=== PATIENT | female | born 1990 | race Caucasian/White ===

== ENCOUNTER 2019-02-26 18:50 | Inpatient (IN) | payer OTHER, SELFPAY ==
[2019-02-26 20:13] VITALS: BMI 27.5
[2019-02-26 20:25] LABS: Absolute Lymphocyte Count 1.81 X10^3/uL (0.83-4.51); Absolute Neutrophil Count 7.2 X10^3/uL (2.0-7.7); Basophil# 0.04 X10^3/uL; Basophil% 0.4 % (0-1); Eosinophil# 0.04 X10^3/uL; Eosinophils% 0.4 % (0-5); Hematocrit 37.1 % (37-47); Hemoglobin 13.1 g/dL (12.0-15.0); Lymphocyte # 1.81 X10^3/ul (4.0); Lymphocyte % 18.8 % (19-41); Mean Corp Hgb Conc 35.3 g/dL (32-36); Mean Corpuscular Hgb 30.2 pg (27.0-32.0); Mean Corpuscular Volume 85.5 fL (81-99); Mean Platelet Vol. 9.9 fl (6.2-12.0); Monocyte# 0.56 X10^3/uL; Monocyte% 5.8 % (0-10); NRBC Flagged by Analyzer 0 % (0-5); Neutrophil # 7.16 X10^3/uL (2.7-7.7); Neutrophil % 74.2 % (47-70); Platelet Count 236 K/mm3 (150-450); RBC Distribution Width SD 39.7 fl (35.1-43.9); Red Blood Count 4.34 M/mm3 (4.2-5.4); White Blood Count 9.7 K/mm3 (4.4-11.0)
[2019-02-26] MEDS: CLARIFY ORDER NOTE (23:20)
[2019-02-27] VITALS (19 sets, daily range): BP systolic 110–164; BP diastolic 56–77; PULSE 68–92; RESP 14–18; TEMP 36.4–38.4; O2SAT 94–100
--- NOTE | 2019-02-27 00:20 | PCM.HP.OB ---
History Date of Admission: 02/26/19 Final DEBBIE: 02/19/19 Gestational age: 41 Weeks and 1 Days History of this : This is a 29 year-old, G [], P [], at 41 weeks gestational age. Medical History: Medical History (Last Updated 02/27/19 @ 00:22 by Syed Sheikh) [place] teeth removed K08.409 Allergies No Known Allergies Allergy (Verified 02/26/19 20:12) Home Medications: Home Medications Vits [Prenatabs FA] 1 tab PO DAILY 02/26/19 Smoking Status: Never smoker Heart Tracin with mod variability, accels TOCO Analysis: Q2 minutes History Past Pregnancies: Past Pregnancies Delivery Date Name GA/Weeks Outcome Route Weight Infant Gender Labor Length Anesthesia Delivery Location Provider FOB Labs: See [facility] prenatals Physical Exam General: Alert, Oriented x3 Abdomen: Soft, Non Tender, Non-Distended, Gravid Neurological: Cranial nerves II-XII grossly intact [employer]ATE ACCOUNTANT: Normal external genitalia Estimated gestational size: Appropriate for gestational size Presentation: Cephalic Cervix Dilation (cm): 1.5 Station: -2 Effacement (%): 70 Assessment/Plan This is a 29 year-old female at 41 weeks gestational age for induction. Admit to L&D. Induction - placed 2nd dose of cytotec. Unable to place intracervical troncoso. GBS positive - start penicillin when in active labor or by 5am. Pain - epidural when desired. EFW less than 4500g, patient with adequate pelvis.
[2019-02-27] MEDS: Lactated Ringers 1,000 ML 50 ML IV ×3 (03:09→10:05)
[2019-02-27] MEDS: Oxytocin 30 units/NS 500 ml 30 UNITS/500 ML IV.SOLN IV (04:20)
[2019-02-27] MEDS: fentaNYL-bupivacaine (epidural) 100 ML BAG EPIDURAL ×2 (05:31→10:08)
--- NOTE | 2019-02-27 07:20 | PN_ITS ---
Progress Note S: Patient comfortable with epidural O: cvx - 8/c/0 IUPC & FSE placed fhts 145 with moderate variability, some variables (mostly mild but some mo derate to deep) and accels tocos - Q 2-4 min A&P: continue expectant management monitoring remains overall reassuring Andria Hairston updated on patient's status as taking over care
[2019-02-27] MEDS: Amnioinfusion- 0.9% NS 1,000 ML IV.SOLN. 1000 ML INTRA-UTER (07:33)
--- NOTE | 2019-02-27 07:48 | PCM.PN.BLA ---
Progress Note Patient now s/p deep variables and prolonged variable of 2-3 minutes that nadired in 60's. Patient in hands & kness, oxygen on and amnioinfusion started. Fht's now 135 with mod variability and accel. monitoring is overall reassuring. Cvx is 9/c/0 Andria Hairston & updated.
--- NOTE | 2019-02-27 09:05 | PCM.PN.OB ---
Subjective: Comfortable with epidural. Feeling pressure. at bedside. Objective: FHT: 140, moderate variability, accels, variable and late decelerations with pushing efforts. TOCO: Every 2-2.5 minutes strong Amnioinfusion Cervix: Complete/+1 station. - Physical Exam Weight: 155 lb 3.2 oz Body Mass Index (BMI) 27.5 Intake and Output for Last 24 Hours 02/25/19 02/26/19 02/27/19 23:59 23:59 23:59 Intake Total 2443 / 2443 Output Total 1200 / 1200 Balance 1243 / 1243 Laboratory Tests Past 24 Hrs 02/26/19 02/26/19 20:00 20:00 WBC 9.7 RBC 4.34 Hgb 13.1 Hct 37.1 MCV 85.5 MCH 30.2 MCHC 35.3 RDW Std Deviation 39.7 RDW Coeff of Joe 13.0 Plt Count 236 MPV 9.9 Immature Gran % (Auto) 0.400 Neut % (Auto) 74.2 H Lymph % (Auto) 18.8 L [place] % (Auto) 5.8 Eos % (Auto) 0.4 Baso % (Auto) 0.4 Absolute Neuts (auto) 7.2 Absolute Lymphs (auto) 1.81 Absolute Nucleated RBC 0.00 Nucleated RBC % 0 Blood Type O POSITIVE Antibody Screen NEGATIVE Medical Necessity - Tobacco Use Smoking Status: Never smoker Assessment/Plan A:Active labor second stage Category 2 FHT P: 1) Continue pushing efforts at this time. Positional changes, IV fluid bolus, O2 via face mask 2) notified of patient status and FHR decelerations.
--- NOTE | 2019-02-27 10:10 | PN_ITS ---
Subjective: Pushing on left side, baby not tolerating other positions. Epidural effective. Objective: FHT 145, moderate variability, accels. variable and late decelerations. TOCO: every 2 minutes, strong +2 station, movement with pushing efforts. - Physical Exam Weight: 155 lb 3.2 oz Body Mass Index (BMI) 27.5 Intake and Output for Last 24 Hours 02/25/19 02/26/19 02/27/19 23:59 23:59 23:59 Intake Total 2443 / 2443 Output Total 1200 / 1200 Balance 1243 / 1243 Laboratory Tests Past 24 Hrs 02/26/19 02/26/19 20:00 20:00 WBC 9.7 RBC 4.34 Hgb 13.1 Hct 37.1 MCV 85.5 MCH 30.2 MCHC 35.3 RDW Std Deviation 39.7 RDW Coeff of Joe 13.0 Plt Count 236 MPV 9.9 Immature Gran % (Auto) 0.400 Neut % (Auto) 74.2 H Lymph % (Auto) 18.8 L [place] % (Auto) 5.8 Eos % (Auto) 0.4 Baso % (Auto) 0.4 Absolute Neuts (auto) 7.2 Absolute Lymphs (auto) 1.81 Absolute Nucleated RBC 0.00 Nucleated RBC % 0 Blood Type O POSITIVE Antibody Screen NEGATIVE Medical Necessity - Tobacco Use Smoking Status: Never smoker Assessment/Plan A:Active Labor, second stage Category 2 FHT P: 1) notified of deep variables and elevated temperature 101.3. Good variability and FHR accelerations. One isolated temperature. Will recheck temp in 30 minutes. 2) Continue with pushing efforts at this time.
[2019-02-27] MEDS: Acetaminophen 325 MG Tablet PO (10:34)
--- NOTE | 2019-02-27 10:54 | PN_ITS ---
Subjective: Laying on right side. Pushing effort continue. Epidural effective. Objective: FHT 150,moderate variability, no accels. Prolonged deceleration with pushing efforts TOCO: strong, every 2 to 2.5minutes +2 station, minimal decent with pushing efforts, caput - Physical Exam Weight: 155 lb 3.2 oz Body Mass Index (BMI) 27.5 Intake and Output for Last 24 Hours 02/25/19 02/26/19 02/27/19 23:59 23:59 23:59 Intake Total 3674 / 3674 Output Total 1350 / 1350 Balance 2324 / 2324 Laboratory Tests Past 24 Hrs 02/26/19 02/26/19 20:00 20:00 WBC 9.7 RBC 4.34 Hgb 13.1 Hct 37.1 MCV 85.5 MCH 30.2 MCHC 35.3 RDW Std Deviation 39.7 RDW Coeff of Joe 13.0 Plt Count 236 MPV 9.9 Immature Gran % (Auto) 0.400 Neut % (Auto) 74.2 H Lymph % (Auto) 18.8 L [place] % (Auto) 5.8 Eos % (Auto) 0.4 Baso % (Auto) 0.4 Absolute Neuts (auto) 7.2 Absolute Lymphs (auto) 1.81 Absolute Nucleated RBC 0.00 Nucleated RBC % 0 Blood Type O POSITIVE Antibody Screen NEGATIVE Medical Necessity - Tobacco Use Smoking Status: Never smoker Assessment/Plan A:Active labor, second stage Category 2 FHT P: 1) notified of prolonged decelerations. Baby not tolerating pushing efforts and positional changes. Stable at this time. Maternal fever present, Tylenol given. Limited decent with 2 hrs of pushing and intolerance. Decision for section. OR team notified, 2 grams Ancef and 500mg Azithromycin ordered. Referral of care to .
[2019-02-27] MEDS: CHLORHEXIDINE GLUC 2% CLOTH 1 EACH TOWELETTE TOPICAL (11:00)
[2019-02-27] MEDS: Sodium Citrate/Citric Acid 30 ML UDC PO (11:05)
--- NOTE | 2019-02-27 11:11 | PCM.PN.BLA ---
Progress Note She was seen at bedside vaginal exam was performed. Noted, OP position, +2 station. Prolonged deceleration while I was in the room down to 70 bpm good return to baseline. I counseled the patient that at this time she still has significant amount of pushing to do fetus is not tolerating pushing efforts and there is minimal descent of the head. Patient also has maternal temperature 101.3 no meconium noted. We reviewed primary fully dilated with deep arrest section risks and benefits including but not limited to bleeding, infection, injury to pelvic structures. Patient and verbalized understanding and wished to proceed with a primary section at this time.
[2019-02-27] MEDS: Cefazolin 2 GM in 0.9% Normal Saline 100 ML IV (11:17)
[2019-02-27] MEDS: Oxytocin 30 units/NS 500 ml 30 UNITS/500 ML IV.SOLN 167 UNITS IV (11:35)
[2019-02-27] MEDS: Methylergonovine 0.2 MG/ML Ampul IM (11:40)
[2019-02-27] MEDS: Lactated Ringers 1,000 ML 100 ML IV ×2 (12:00→21:44)
[2019-02-27] MEDS: Ondansetron 4 MG/2 ML Vial IV (12:00)
--- NOTE | 2019-02-27 12:07 | PLAC_PTH ---
PATIENT: IRA DE LA ROSA LOC: WP U#:[id number] AGE/SX: 29/F ROOM: WP021 RE02/26/[address]: Dr. Laura Valentine, MDDOB: 1990 BED: 1 DIS: 03/01/2019 SPEC #: [id number] RECD: 02/27/19 15:36 STATUS: MATTHEW BENNIE #: [id number] AMADO: 02/27/19 12:[address]: Laura Valentine DEPT: SURGICAL PATHOLOGY RECD BY: Franco Bueno ENTERED: 03/02/19 08:08 SP TYPE: PLACENTA OTHR DR: No Primary Care Phys Tissues: Placenta, NOS Procedures: Surgery Specimen Level V HEADER OPERATION: Primary section PRE-OP DIAGNOSIS: Suspected triple I TISSUE SUBMITTED: Placenta MICROSCOPIC DIAGNOSIS [place] placenta (435 gm): Umbilical cord - trivascular with no inflammation Placental membranes - no pathologic change. Placental disc - Alana-Eric change and mildly increased intraparenchymal fibrin plaques. AM:juan francisco 03/03/19 MICROSCOPIC DESCRIPTION Slides are reviewed. GROSS DESCRIPTION SPECIMEN: PLACENTA / CLINICAL INFORMATION: A. Weight: 3.237 kg B. Gestational Age: 41 weeks C. Sex: Male PLACENTAL WEIGHT (POST FIXATION): 435 gm PLACENTAL DIMENSIONS: 19 x 19 x 3 cm PLACENTAL SHAPE: Usual ovoid PLACENTAL WEIGHT FOR GESTATIONAL AGE: Within 10-99th percentile MEMBRANES - Present A. Insertion: Marginal B. Site of rupture from edge: At edge of placental disc C. Color of membrane: [place]-cameron D. Abnormalities: None UMBILICAL CORD - Present A. Color: [place]-cameron B. Insertion: Central C. Length: 17 cm D. Diameter: Up to 1 cm E. Number of vessels: Three F. Abnormalities: None PLACENTAL DISC - Present A. Color of surface: [place]-cameron B. surface abnormalities: None C. Maternal cotyledons: Intact with minimal tears D. Attached retro placental clot: No clot E. Cut surface: Dark red and spongy F. Lesions: None G. Separate clot: Absent SECTIONS SUBMITTED: 1. Membrane roll 2. Cord, maternal end 3. Cord, end 4. Placental disc, and maternal surfaces 5. Placental disc, and maternal surfaces 6. Placental disc, and maternal surfaces SJ:juan francisco 03/02/19 TC:5 CPT: 30582
--- NOTE | 2019-02-27 12:10 | OP.PCM_ITS ---
Delivery Classification: ARLEY Final DEBBIE Source: LMP Gestational age: 41.1 Indications: Nonreassuring heart status-tolerance to pushing. Arrest of descent. Suspected AAA. Description of Procedure: Operative note: After informed consent was obtained the patient was taken the operating room. She was then placed in the supine position. She was prepped and draped in the normal sterile fashion. Epidural anesthesia was found to be adequate. At this time a Pfannenstiel skin incision was made with a knife was carried down to the underlying layer of the fascia. The fascial incision was then extended laterally using curved Perez scissor. Tensions was then turned to the superior aspect of the fascial edge was grasped with 2 straight Tohatchi clamps tented up and the rectus muscle dissected off sharply using curved Perez scissor. Attention was then turned to the inferior aspect where again Harriet clamps were placed in the rectus muscles were tented up and the fascia was dissected off sharply using the curved Perez scissor. Rectus muscles were then in the midline bluntly and peritoneum was entered bluntly. Gentle opposing traction was placed. At this time the vesicouterine peritoneum was identified. Metzenbaum scissors were used to create a bladder flap and that was taken down digitally. Scalpel was used to make a uterine incision in a low transverse fashion. The uterus was then entered bluntly gentle opposing traction was placed to extend this incision. With the assistance from a push-up from below 's head was brought to the uterine incision was delivered atraumatically. Fetus was in the OP position. Sent was vigorous. Delayed cord clamping was performed. Cord was clamped and cut was handed to the waiting nursery team. The Placenta was removed from the uterus. The uterus was then removed from the abdominal cavity. The uterus was cleared of all clots and debris using a lap. At this time the uterine incision was reapproximated using #1 Vicryl in a running locked fashion. Second imbricating layer was placed using #1 Vicryl in a [id number] fashion. Hemostasis was appreciated. Posterior cul-de-sac was then cleared of all clots and debris. Uterus was placed back in the abdominal cavity. Gutters were cleared of all clots and debris. Uterine incision was reevaluated and noted to be of excellent hemostasis. Efrain placed. At this time the peritoneum was grasped with Kellys reapproximated using #2 Vicryl suture in a running fashion-imbricating the muscle. Fascia was then reapproximated using #1 Vicryl in a running fashion. Subcu layer was reapproximated with #2 0 plain gut suture in an interrupted fashion. Subcu layer was closed using 4-0 Vicryl on a Jason needle in a subcu fashion. Dry sterile dressing was applied. Instrument lap needle count correct ?2. Anticipated normal postoperative course. Amniotic Membrane Rupture Type: Spontaneous Amniotic Fluid Description: Clear Placenta Disposition: Routine to Lab Specimen(s) sent to pathology: placenta Drain: Camacho to straight drain Cord Entanglement: None Cord Vessel Description: 3 Vessels Esitmated Blood Loss (ml): 800 Infant Gender: Male (1 minute): 8 (5 minute): 9 Delayed cord clamping: Yes Pre-op Antibiotic Given: - - azithromycin 500mg Pt instructed on risks of surgery: Bleeding, Anesthesia Risks, Infection, Injury to surrounding structure(s) including bowel and bladder Complications: None - Admit VTE Documentation VTE Present on Admission: Yes VTE Mechan Device Prophylaxis: SCD's VTE Pharm Prophylaxis ordered?: Yes
[2019-02-27 15:18] LABS: Absolute Lymphocyte Count 0.66 X10^3/uL (0.83-4.51); Absolute Neutrophil Count 16.9 X10^3/uL (2.0-7.7); Basophil# 0.03 X10^3/uL; Basophil% 0.2 % (0-1); Eosinophils% 0.5 % (0-5); Hematocrit 34.9 % (37-47); Hemoglobin 12.3 g/dL (12.0-15.0); Lymphocyte # 0.66 X10^3/ul (4.0); Lymphocyte % 3.5 % (19-41); Mean Corp Hgb Conc 35.2 g/dL (32-36); Mean Corpuscular Hgb 30.5 pg (27.0-32.0); Mean Corpuscular Volume 86.6 fL (81-99); Mean Platelet Vol. 9.9 fl (6.2-12.0); Monocyte# 1.06 X10^3/uL; Monocyte% 5.6 % (0-10); NRBC Flagged by Analyzer 0 % (0-5); Neutrophil # 16.89 X10^3/uL (2.7-7.7); Neutrophil % 89.6 % (47-70); Platelet Count 209 K/mm3 (150-450); RBC Distribution Width CV 12.8 % (11.6-14.6); RBC Distribution Width SD 39.9 fl (35.1-43.9); Red Blood Count 4.03 M/mm3 (4.2-5.4); White Blood Count 18.9 K/mm3 (4.4-11.0)
[2019-02-27] MEDS: Ketorolac 30 MG/ML Syringe IV (17:51)
[2019-02-28] VITALS (11 sets, daily range): BP systolic 94–107; BP diastolic 51–63; PULSE 68–97; RESP 14–18; TEMP 36.1–37.3; O2SAT 94–98
[2019-02-28] MEDS: Ketorolac 30 MG/ML Syringe IV ×4 (00:37→17:26)
[2019-02-28 04:18] LABS: Absolute Lymphocyte Count 1.14 X10^3/uL (0.83-4.51); Absolute Neutrophil Count 14.2 X10^3/uL (2.0-7.7); Basophil# 0.03 X10^3/uL; Basophil% 0.2 % (0-1); Eosinophil# 0.02 X10^3/uL; Eosinophils% 0.1 % (0-5); Hematocrit 29.4 % (37-47); Hemoglobin 10.3 g/dL (12.0-15.0); Lymphocyte # 1.14 X10^3/ul (4.0); Mean Corpuscular Hgb 30.7 pg (27.0-32.0); Mean Corpuscular Volume 87.8 fL (81-99); Mean Platelet Vol. 9.9 fl (6.2-12.0); Monocyte# 0.78 X10^3/uL; Monocyte% 4.8 % (0-10); NRBC Flagged by Analyzer 0 % (0-5); Neutrophil # 14.22 X10^3/uL (2.7-7.7); Neutrophil % 87.5 % (47-70); Platelet Count 176 K/mm3 (150-450); RBC Distribution Width CV 13.2 % (11.6-14.6); RBC Distribution Width SD 41.8 fl (35.1-43.9); Red Blood Count 3.35 M/mm3 (4.2-5.4); White Blood Count 16.3 K/mm3 (4.4-11.0)
[2019-02-28] MEDS: Enoxaparin 40 MG/0.4 ML Syringe SC (06:16)
[2019-02-28] MEDS: Senna/Docusate Sodium 1 Tablet PO (06:16)
[2019-02-28] MEDS: 0.9% Saline Lock 10 ML Syringe IV ×2 (10:03→14:49)
[2019-02-28] MEDS: Ferrous Sulfate 325 MG Tablet PO ×2 (12:18→17:27)
--- NOTE | 2019-02-28 12:41 | PN.OBGYN_ITS ---
Subjective: Doing well per patient and nursing staff. Ambulating and taking PO without difficulty. Up to chair. Camacho out and has urinated. Pain controlled. Louisa astfeeding without difficulty. - Physical Exam General: Alert, Oriented x3, Cooperative HEENT: Atraumatic, Normocephalic Neck: Trachea Midline Lungs: Clear to auscultation, Normal air movement, No rhonchi, No wheeze Cardiovascular: Regular rate, Regular Rhythm, No murmurs Abdomen: Bowel Sounds Present, - - Fundus firm 2 below U. Dressing dry and intact. Wearing abdominal binder Extremities: No edema, - - Zaheer's negative Psych/Mental Status: Normal Affect, Appropriate Vital Signs Temp Pulse Resp BP Pulse Ox 97.7 F L 95 16 94/51 L 98 02/28/19 08:05 02/28/19 10:00 02/28/19 10:00 02/28/19 08:05 02/28/19 06:10 Oxygen Delivery Method Room Air Weight: 155 lb 3.2 oz Body Mass Index (BMI) 27.5 Intake and Output for Last 24 Hours 02/26/19 02/27/19 02/28/19 23:59 23:59 23:59 Intake Total 8460 / 8460 1879 / 1879 Output Total 3500 / 3500 1600 / 1600 Balance 4960 / 4960 279 / 279 Microbiology Past 72 Hours 02/27/19 14:50 Urine Culture - Preliminary Urine Catheter - Camacho Culture exhibits no growth. Laboratory Tests Past 24 Hrs 02/27/19 02/28/19 15:10 04:15 WBC 18.9 H 16.3 H RBC 4.03 L 3.35 L Hgb 12.3 10.3 L Hct 34.9 L 29.4 L MCV 86.6 87.8 MCH 30.5 30.7 MCHC 35.2 35.0 RDW Std Deviation 39.9 41.8 RDW Coeff of Joe 12.8 13.2 Plt Count 209 176 MPV 9.9 9.9 Immature Gran % (Auto) 0.600 0.400 Neut % (Auto) 89.6 H 87.5 H Lymph % (Auto) 3.5 L 7.0 L [place] % (Auto) 5.6 4.8 Eos % (Auto) 0.5 0.1 Baso % (Auto) 0.2 0.2 Absolute Neuts (auto) 16.9 H 14.2 H Absolute Lymphs (auto) 0.66 L 1.14 Absolute Nucleated RBC 0.00 0.00 Nucleated RBC % 0 0 Medical Necessity - Tobacco Use Smoking Status: Never smoker Assessment/Plan A: POD #1 Primary Section due to intolerance of labor P: 1)Reviewed post op instructions. To continue with ambulation. 2) Pain controlled 3) 4) Last temp 101.1 at 1425 on 02/27/19, patient has remained afebrile. Ok to discontinue triple antibiotics if remains afebrile at 24hrs. 5) Planning D/C home tomorrow after 48 hr stay. 6) Ferrous Sulfate 325mg PO BID for hgb 10.3, asymptomatic.
--- NOTE | 2019-02-28 14:57 | NURSING ---
MYNOR Wagner phones. plan to re-check pt's temperature around 1500. if afebrile, antibiotics to be discontinued
[2019-03-01] MEDS: Ketorolac 30 MG/ML Syringe IV ×3 (00:03→11:49)
[2019-03-01 02:45] VITALS: BP 99/55; PULSE 78; RESP 18; TEMP 36.6; O2SAT 99
[2019-03-01] MEDS: Enoxaparin 40 MG/0.4 ML Syringe SC (06:18)
[2019-03-01] MEDS: 0.9% Saline Lock 10 ML Syringe IV (06:19)
--- NOTE | 2019-03-01 08:44 | PCM.PN.OB ---
Subjective: Seen at bedside doing well. Patient reports good pain control. Breast-feeding well. Reports positive bowel movement, urinating without difficulty. Patient denies chest pain, shortness of breath, dizziness. - Physical Exam General: Alert, Oriented x3 Abdomen: Soft, Non-Distended, Passing Flatus, - - Fundus firm, dressing site dry intact Extremities: No Calf Tenderness Vital Signs Temp Pulse Resp BP Pulse Ox 97.8 F 78 18 99/55 L 99 03/01/19 02:45 03/01/19 02:45 03/01/19 02:45 03/01/19 02:45 03/01/19 02:45 Oxygen Delivery Method Room Air Weight: 70.398 kg Body Mass Index (BMI) 27.5 Intake and Output for Last 24 Hours 02/27/19 02/28/19 03/01/19 23:59 23:59 23:59 Intake Total 8460 / 8460 1879 / 1879 Output Total 3500 / 3500 2400 / 2400 Balance 4960 / 4960 -521 / -521 Microbiology Past 72 Hours 02/27/19 14:50 Urine Culture - Preliminary Urine Catheter - Camacho Culture exhibits no growth. Medical Necessity - Tobacco Use Smoking Status: Never smoker Assessment/Plan Postop day #2, doing well Routine care Ambulation Pain controlled Monitor vital signs-last temp was recorded on 27 February 2019. Patient has been asymptomatic. DC home later today if remains afebrile
--- NOTE | 2019-03-01 08:50 | DCINST_ITS ---
Discharge Diet: No Restrictions Discharge Activity: Return to Normal Activity, May Not Drive - for 2 weeks, May not drive while taking narcotic pain medications., May Shower, May Take a Tub Bath - in 7 days. May resume sexual activity in: 4-6 weeks Lifting Restrictions: 20 pounds Additional Activity Instructions:: Nothing in the vagina for 4-6 weeks. You may return to work/school in 6 weeks. Call your doctor if your incision/area has: Continuous Slow Oozing, Sudden Increased Bleeding, Increased Pain/ Swelling, Increased Redness, Foul Smelling Discharge Call your doctor if you observe: Fever of 101 or Higher, Using more than one pad per hour - for 2 hours Suture Line Care: Avoid Pulling/Pushing, Avoid Pinching/Bending Cleanse incision/area with: Keep Dressing Clean & Dry Additional Instructions: If you experience any of the following, contact your healthcare provider. * Bleeding that soaks a pad every hour for 2 hours * Fever 100.4 or higher * Unrelieved incision or abdominal pain * Swelling, redness, discharge or bleeding from your incision or episiotomy site * Your incision begins to separate * Problems urinating (including inability to urinate or burning while urinating). * Visual changes * Severe headache * Flu-like symptoms * Pain or redness in one of both of your breasts * Pain, warmth, tenderness or swelling in your legs, especially the calf area * Frequent nausea and vomiting * Symptoms of depression or anxiety If you experience any of the following, call 911 or go to the nearest Emergency Room. * Chest pain * Problems breathing * Seizure activity * Partial or complete paralysis of a body part, slurred speech, weakness or drooping of the face, or a sudden inability to walk or hold your balance Allergies/Adverse Reactions: Allergies No Known Allergies Allergy (Verified 02/26/19 20:12) Medications to take at Discharge Vits [Prenatabs FA] 1 tab PO DAILY 02/26/19 Ibuprofen [Motrin] 600 mg PO Q6H PRN PRN #30 tab 03/01/19 Oxycodone HCl/Acetaminophen [Percocet 5/325] 1 tablet PO Q6H PRN PRN 7 Days #20 tablet 03/01/19 Senna/Docusate Sodium [Senokot-S] 1 tab PO DAILY PRN #20 tab 03/01/19 SimETHICONE [Mylicon] 80 mg PO PCHS PRN #30 tab 03/01/19 The following prescriptions were given: Ibuprofen [Motrin] 600 mg PO Q6H PRN PRN #30 tab PRN Reason: Mild Pain (-10/19) Transmission Status: Pending to [id number] SimETHICONE [Mylicon] 80 mg PO PCHS PRN #30 tab PRN Reason: Indigestion/stomach pain Transmission Status: Pending to [id number] Oxycodone HCl/Acetaminophen [Percocet 5/325] 1 tablet PO Q6H PRN PRN 7 Days #20 tablet PRN Reason: Pain Transmission Status: Received by [facility] Senna/Docusate Sodium [Senokot-S] 1 tab PO DAILY PRN #20 tab PRN Reason: Constipation Transmission Status: Pending to [id number] Follow-Up: Call to make an appointment with your doctor for an incision check in 1-2 weeks. You will also need a 6 week post- follow up appointment. Test results from this visit will be discussed in further detail at your follow- up appointment, if applicable. Please Follow Up With: Laura Valentine MD - Call to make an appointment for an incision check in 1-2 [phone] When: You will need a post- check in 6 weeks. Primary Care Physician: Care Physician,No Primary [Primary Care Provider] -
--- NOTE | 2019-03-01 08:51 | PCM.DC.BLA ---
Discharge Summary Date of Admission: 02/26/19 Date of Discharge: 03/01/19 Summary: Was admitted to [facility] on 02/26/2019 for induction of labor postterm at 41 weeks. Patient progressed to fully dilated and pushing. Patient had nonreassuring heart rate, failure to descend, suspected Triple I. Patient underwent a low transverse primary section without complication. Patient did spike a fever prior to the and after she was started on triple antibiotics ampicillin, gentamicin, clindamycin. She remained afebrile for 48 hours and was discharged home on postoperative day #2 in stable condition. Hematocrit and hemoglobin were stable. White blood cells trending down. - Physical Exam Vital Signs Temp Pulse Resp BP Pulse Ox 97.8 F 78 18 99/55 L 99 03/01/19 02:45 03/01/19 02:45 03/01/19 02:45 03/01/19 02:45 03/01/19 02:45 Oxygen Delivery Method Room Air Weight: 70.398 kg Body Mass Index (BMI) 27.5 Intake and Output for Last 24 Hours 02/27/19 02/28/19 03/01/19 23:59 23:59 23:59 Intake Total 8460 / 8460 1879 / 1879 Output Total 3500 / 3500 2400 / 2400 Balance 4960 / 4960 -521 / -521 Microbiology Past 72 Hours 02/27/19 14:50 Urine Culture - Preliminary Urine Catheter - Camacho Culture exhibits no growth.
[2019-03-01 09:10] VITALS: BP 111/60; PULSE 89; RESP 16; TEMP 37.1; O2SAT 98
[2019-03-01] MEDS: Ferrous Sulfate 325 MG Tablet PO (11:49)
[2019-03-01 14:00] VITALS: BP 114/66; PULSE 100; RESP 16; TEMP 37.2; O2SAT 100
[2019-03-01] MEDS: Acetaminophen 500 MG Tablet 1000 MG PO (14:21)
[2019-03-03 12:32] LABS: Pathology Specimen OB SEE PATHOLOGY REPORT
== END 2019-03-01 15:10 | disposition home or self-care (01) | DRG 787 ==
PROVIDERS: Admitting Provider Obstetrics & Gynecology; Referring Provider Obstetrics & Gynecology; Visit Provider Obstetrics & Gynecology
DX: O99.824 Streptococcus B carrier state complicating childbirth (principal); O75.2 Pyrexia during labor, not elsewhere classified; O48.0 Post-term pregnancy; O32.4XX0 Maternal care for high head at term, not applicable or unspecified; O62.1 Secondary uterine inertia; O76 Abnormality in fetal heart rate and rhythm complicating labor and delivery; Z3A.41 41 weeks gestation of pregnancy; Z37.0 Single live birth
CPT/HCPCS: 36415; 59025; 59050; 85025; 86850; 86900; 87040; 87086; 88307; 99218; J7030; J7120; A4216; G0378; J2405

== ENCOUNTER → 2019-10-12 13:11 | Outpatient (CLI) | payer OTHER, SELFPAY ==
[2019-10-12 14:31] LABS: Potassium 4.1 mmol/L (3.5-5.1)
== END ==
PROVIDERS: Referring Provider Dermatology; Visit Provider Dermatology
DX: L70.0 Acne vulgaris (principal); Z79.899 Other long term (current) drug therapy
CPT/HCPCS: 36415; 84132

== ENCOUNTER 2021-05-04 01:10 | Inpatient (IN) | payer OTHER, SELFPAY ==
[2021-05-04] VITALS (20 sets, daily range): BP systolic 104–128; BP diastolic 43–74; PULSE 65–111; RESP 16–20; TEMP 36–37.3; O2SAT 95–99; BMI 27.9
[2021-05-04] MEDS: Lactated Ringers 1,000 ML 999 ML IV (01:15)
[2021-05-04] MEDS: Acetaminophen 500 MG Tablet 1000 MG PO ×4 (01:25→21:08)
[2021-05-04] MEDS: Sodium Citrate/Citric Acid 30 ML UDC PO (01:25)
[2021-05-04 01:27] LABS: Absolute Neutrophil Count 15.6 X10^3/uL (2.0-7.7); Basophil# 0.05 X10^3/uL; Basophil% 0.3 % (0-1); Eosinophil# 0.01 X10^3/uL; Eosinophils% 0.1 % (0-5); Hematocrit 37.9 % (37-47); Hemoglobin 13.2 g/dL (12.0-15.0); Lymphocyte % 7.3 % (19-41); Mean Corp Hgb Conc 34.8 g/dL (32-36); Mean Corpuscular Hgb 30.3 pg (27.0-32.0); Mean Corpuscular Volume 86.9 fL (81-99); Mean Platelet Vol. 9.8 fl (6.2-12.0); Monocyte# 0.63 X10^3/uL; Monocyte% 3.6 % (0-10); NRBC Flagged by Analyzer 0 % (0-5); Neutrophil # 15.62 X10^3/uL (2.7-7.7); Neutrophil % 88.1 % (47-70); Platelet Count 261 K/mm3 (150-450); RBC Distribution Width CV 13.1 % (11.6-14.6); RBC Distribution Width SD 41.1 fl (35.1-43.9); Red Blood Count 4.36 M/mm3 (4.2-5.4); White Blood Count 17.7 K/mm3 (4.4-11.0)
[2021-05-04] MEDS: Cefazolin 2 GM in 0.9% Normal Saline 100 ML IV (01:42)
--- NOTE | 2021-05-04 01:55 | PCM.HP.OB ---
HPI - General General Date of Admission: 05/04/21 Date of Service: 05/04/21 Chief Complaint: contractions HPI Narrative IRA DE LA ROSA, is a 31 F who presents who presents w/ DEBBIE of 05/17/2021. Patient presents with a contractions. She denies any gross vaginal bleeding or leaking of fluid. She arrived to labor and delivery and was found to be in labor. She has a history of previous section and desired repeat. Maternal Data Information Final DEBBIE: 05/17/21 Final DEBBIE Source: LMP Gestational age: 38 08/18 PFSH PFSH Home Medications vit,[id number] 1 tab PO DAILY 02/26/19 [History Last Taken 02/25/19] ibuprofen 600 mg PO Q6H PRN PRN #30 tab 03/01/19 [Rx Last Taken Unknown] sennosides-docusate sodium 1 tab PO DAILY PRN #20 tab 03/01/19 [Rx Last Taken Unknown] simethicone 80 mg PO PCHS PRN #30 tab 03/01/19 [Rx Last Taken Unknown] Allergy/AdvReac Type Severity Reaction Status Date / Time No Known Allergies Allergy Verified 02/26/19 20:12 Surgical History (Updated 05/04/21 @ 01:[address] Naty Wilcox MD) Previous section [place] teeth removed Social History Smoking Status: Never smoker History Elective abortions Hx Para 1 Spontaneous abortions Hx # Term Pregnancies Ectopic pregnancies Hx # Pregnancies Multiple births # of living children ROS Constitutional Constitutional: Denies fatigue, fever(s) or malaise Eyes Eyes: Denies change in vision ENT HEENT: Denies dizziness or headache(s) Cardiovascular Cardiovascular: Denies chest pain, dyspnea or lightheadedness Respiratory/Chest Respiratory/Chest: Denies cough or dyspnea Gastrointestinal Gastrointestinal: Denies change in bowel habits Genitourinary Genitourinary: Denies burning urination or genital lesions Integumentary Integumentary: Denies rash Neurologic Neurologic: Denies confusion, dizziness, headache(s), numbness or weakness Vital Signs Vital Signs Vital Signs: 05/04/21 01:00 05/04/21 01:22 Temperature 96.8 F L Temperature Source Temporal Pulse Rate 111 H 100 Respiratory Rate 18 Blood Pressure 127/69 H 127/69 H Blood Pressure Mean 88 BP Systolic 127 BP Diastolic 69 Pulse Ox 99 Oxygen Delivery Method Room Air Weight Weight: 71.577 kg Body Mass Index (BMI) 27.9 Physical Exam Const alert and no apparent distress General Appearance: cooperative HEENT normocephalic Resp normal respiratory effort Cardio regular rate GI soft to palpation GI Narrative: gravid, nontender, appropriate for gestational age Extremity no calf tenderness General Extremity: edema Skin no wounds Rashes: No rashes noted Psych activity/motor behavior normal Labs Labs Labs: Blood Type O POSITIVE Antibody Screen NEGATIVE Hct 37.9 % (37-47) Hgb 13.2 g/dL (12.0-15.0) Neisseria gonorrhoeae DNA (GAYLE) Negative (Negative) Rhogam given: No Assessment & Plan (1) 38 weeks gestation of : (2) Spontaneous onset of labor: (3) Encounter for supervision of other normal , third trimester: PLAN: Risk benefits alternatives and personnel to repeat section versus trial of labor him discussed with patient, questions were answered to her satisfaction she desires to proceed with trial of .
[2021-05-04] MEDS: Methylergonovine 0.2 MG/ML Ampul IM (02:13)
--- NOTE | 2021-05-04 02:26 | EX.PCM.OBRPT ---
Assessment & Plan (1) delivery delivered: (2) Single live : Maternal Data Information Final DEBBIE: 05/17/21 Gestational age: 38 1/7 Details Operative Information Date of Procedure: 05/04/21 Pre-Operative Diagnosis: labor, previous c/s Post-Operative Diagnosis: same Classification: ARLEY Procedure Type: low transverse help desk engineer #1: Naima Carter Type of Anesthesia: Spinal Anesthesiologist: Jimmy Kan Special Medications: duramorph Antibiotic Given: Ancef 2 grams IV x1 Drain: Camacho to straight drain Estimated Blood Loss: 600 Fluids Replaced: 800 Procedure Start Time: 02:03 Procedure Stop Time: 02:06 Time of Delivery: 02:32 Findings Description of Procedure: The patient was taken to the operating room. She was prepped and draped in the dorsal supine position with a leftward tilt. A Pfannenstiel skin incision was made approximately 2 cm above the symphysis pubis and carried through to underlying layer fascia with the scalpel. The fascia was incised incised in the midline and extended laterally with the Perez scissors. The fascia was dissected off the rectus muscles with blunt and sharp dissection. The rectus muscles were in the midline and the peritoneum was entered bluntly. The peritoneal incision was stretched and the bladder blade was placed. The uterine incision was made in a low transverse fashion with the scalpel and extended superiorly and inferiorly with blunt dissection. The amniotic membranes were ruptured bluntly and clear amniotic fluid returned. The 's head was brought to the incision in the flexed position and delivered without difficulty. The remainder of the was delivered with gentle traction and fundal pressure in the standard fashion. The mouth and nares were bulb suctioned. The cord was clamped and cut as the infant was stimulated. Cord clamping was delayed. The was handed off to the waiting nursing staff. The placenta was delivered with fundal massage and gentle traction in the standard fashion. The uterus was exteriorized and cleared of all clots and debris. . The uterine incision was closed with #1 Vicryl in a running locked fashion. A second layer of the same suture was used in an imbricating fashion. The incision was examined and was found to be hemostatic. The uterus was placed back into the peritoneal cavity and hemostasis was again confirmed. The rectus muscles were examined and any bleeding was Bovie cauterized. The parietal peritoneum and rectus muscles were closed en bloc with an 0 Vicryl running suture. The surgical teams outer gloves were then changed. The rectus fascia was examined and any bleeding was Bovie cauterized and the rectus fascia was closed with 1 Vicryl suture in a running standard fashion. The subcutaneous tissue was examining and any bleeding was Bovie cauterized. The subcutaneous tissue was reapproximated with 3-0 Vicryl suture. The skin was closed in a subcuticular fashion by the CIRCULATING PROCESS INSPECTOR with me present in the labor and delivery suite. I performed the remainder of the procedure with assistance. All sponge, lap, and needle counts were correct. The patient was taken to her room for recovery in a stable condition. Presentation: Positive for ROP Amniotic Membrane Rupture Type: Artificial Amniotic Fluid Description: Clear Placental Delivery Description: Expressed Placenta Disposition: [facility] Specimen(s) Sent to Pathology: None Cord Vessel Description: 3 Vessels Cord Entanglement: None Infant A Gender: Female (South) (1 minute): 8 (5 minute): 9 Delayed Cord Clamping: Yes Complications Complications: none Admit VTE Documentation VTE Present on Admission: No VTE Mechan Device Prophylaxis: SCD's VTE Pharm Prophylaxis Ordered: No Reason Prophylaxis Not Ordered: Procedure Not Indicated
[2021-05-04] MEDS: Oxytocin 30 units/NS 500 ml 30 UNITS/500 ML IV.SOLN 167 UNITS IV (02:50)
[2021-05-04] MEDS: Lactated Ringers 1,000 ML 100 ML IV (02:50)
[2021-05-04] MEDS: Ketorolac 30 MG/ML Syringe IV ×4 (03:33→21:09)
[2021-05-04] MEDS: 0.9% Saline Lock 10 ML Syringe IV ×3 (03:34→21:08)
[2021-05-04] MEDS: Senna/Docusate Sodium 1 Tablet PO (08:56)
--- NOTE | 2021-05-04 19:35 | NURSING ---
pt reports having blister on left nipple, Vic Patrick IBCLC assessed previously, pt declines intervention at this time
[2021-05-05 02:11] VITALS: BP 105/65; PULSE 65; RESP 18; TEMP 36.6
[2021-05-05] MEDS: Ibuprofen 600 MG Tablet PO ×2 (02:22→09:48)
[2021-05-05] MEDS: Acetaminophen 500 MG Tablet 1000 MG PO ×2 (02:23→09:48)
[2021-05-05 06:35] LABS: Hemoglobin 10.7 g/dL (12.0-15.0); Mean Corp Hgb Conc 33.4 g/dL (32-36); Mean Corpuscular Hgb 30.1 pg (27.0-32.0); Mean Corpuscular Volume 90.1 fL (81-99); Mean Platelet Vol. 9.2 fl (6.2-12.0); Platelet Count 186 K/mm3 (150-450); RBC Distribution Width CV 13.5 % (11.6-14.6); RBC Distribution Width SD 44.1 fl (35.1-43.9); Red Blood Count 3.55 M/mm3 (4.2-5.4); White Blood Count 10.7 K/mm3 (4.4-11.0)
--- NOTE | 2021-05-05 07:35 | NURSING ---
bedside report given to Nash Platt RN and Rut Thayer RN who are assuming care of pt at this time
[2021-05-05 07:59] VITALS: BP 129/77; PULSE 88; RESP 16; TEMP 36.5
--- NOTE | 2021-05-05 09:06 | PCM.PN.OB ---
Subjective Subjective denies complaints Objective Data Objective Data Vital Signs: Vital Signs Temp Pulse Resp BP Pulse Ox 97.7 F L 88 16 129/77 H 96 05/05/21 07:59 05/05/21 07:59 05/05/21 07:59 05/05/21 07:59 05/04/21 19:35 Oxygen Delivery Method Room Air Weight: 157 lb 12.8 oz Body Mass Index (BMI) 27.9 Intake & Output: Intake and Output for Last 24 Hours 05/03/21 05/04/21 05/05/21 23:59 23:59 23:59 Intake Total 2251.67 / 2251.67 Output Total 1500 / 1500 Balance 751.67 / 751.67 Lab / Micro Data Result Diagrams: 05/05/21 06:25 Labs: Laboratory Results - last 24 hr 05/05/21 06:25: WBC 10.7, RBC 3.55 L, Hgb 10.7 L, Hct 32.0 L, MCV 90.1, MCH 30.1, MCHC 33.4, RDW Std Deviation 44.1 H, RDW Coeff of Joe 13.5, Plt Count 186, MPV 9.2 Micro: Microbiology 05/04/21 01:20 Nasal Secretion SARS-CoV-2 Antigen (Rapid) - Final Physical Exam Const alert, oriented x3 and no apparent distress HEENT normocephalic GI soft to palpation, non-tender and non-distended GI Narrative: fundus firm, mid & below umbilicus Incision - bandage c/d/i Extremity normal to inspection and no calf tenderness Assessment & Plan (1) delivery delivered: COMMENT: POD#2 PLAN: D/c home per patient request
--- NOTE | 2021-05-05 09:07 | PCM.DC ---
Discharge Instructions Diet Discharge Diet: No restrictions Activity Discharge Activity: May Shower May resume sexual activity in: 6 weeks Weight Bearing Status: Weight bearing as tolerated Dressing / Incision Call your doctor if your incision/area has: Continuous Slow Oozing, Sudden Increased Bleeding, Increased Pain/ Swelling, Increased Redness, Foul Smelling Discharge and Swelling at the incision site Call your doctor if you observe: Fever of 101 or Higher, Coldness, Increased Pain, Change in Color, Inability to urinate, Inability to have a bowel movement, Using more than 1 pad per hour, Shortness of breath, Dizziness, Fainting spells, Chest pain, Increased palpitations (irregular heartbeat), Calf discomfort and Uncontrolled pain Suture Line Care: Avoid Pulling/Pushing and Avoid Pinching/Bending Remove Dressing in: 1 week Cleanse incision/area with: Soap & Water Follow Up Care Please Follow Up With: Naty Wilcox MD When: Follow up in 2 and 6 weeks for visits. Test Results: Test results from this visit will be discussed in further detail at your follow-up appointment, if applicable. Discharge Plan Admission Admit Date/Time: 05/04/21 01:10 Attending Provider: Naty Wilcox Primary Care Provider: Care Physician,No Primary Discharge Orders/Prescriptions Prescriptions: New acetaminophen 500 mg Tablet 1,000 mg PO Q6H Qty: 0 RF: 0 ibuprofen 600 mg Tablet 600 mg PO Q6H Qty: 0 RF: 0 Continued vit,[id number] 1 TABLET tablet 1 tab PO DAILY RF: 0 Referrals / Follow Up: Care Physician,No Primary [Primary Care Provider] - Disposition Disposition (needs filled in before D/C Order can be placed): Home, Self Care
[2021-05-05] MEDS: Senna/Docusate Sodium 1 Tablet PO (09:49)
== END 2021-05-05 10:35 | disposition home or self-care (01) | DRG 788 ==
LOC: WPOUT 01:10 → WP 01:10
PROVIDERS: Admitting Provider Obstetrics & Gynecology; Referring Provider Obstetrics & Gynecology; Visit Provider Obstetrics & Gynecology
DX: O34.219 Maternal care for unspecified type scar from previous cesarean delivery (principal); Z20.822 Contact with and (suspected) exposure to COVID-19; Z3A.38 38 weeks gestation of pregnancy; Z37.0 Single live birth
CPT/HCPCS: 59025; 59050; 85025; 85027; 86850; 86900; 86901; 87426; 99218; J7120; 90686; A4216; G0378; J2405